=== PATIENT | male | born 1940 | race Caucasian/White ===

== ENCOUNTER 2018-12-14 08:47 | Outpatient (RCR) | payer MEDICARE, BC | END 2018-12-16 09:09 | LOC: OPPGERO 08:47 | DX: F32.1 Major depressive disorder, single episode, moderate (principal); F41.9 Anxiety disorder, unspecified; F43.12 Post-traumatic stress disorder, chronic; I69.311 Memory deficit following cerebral infarction; I34.0 Nonrheumatic mitral (valve) insufficiency; I25.2 Old myocardial infarction; E03.9 Hypothyroidism, unspecified; R06.02 Shortness of breath; F10.20 Alcohol dependence, uncomplicated; Z60.0 Problems of adjustment to life-cycle transitions; Z86.79 Personal history of other diseases of the circulatory system; Z95.1 Presence of aortocoronary bypass graft; Z95.810 Presence of automatic (implantable) cardiac defibrillator; Z79.01 Long term (current) use of anticoagulants; Z79.82 Long term (current) use of aspirin; Z79.51 Long term (current) use of inhaled steroids; Z79.899 Other long term (current) drug therapy ==

== ENCOUNTER 2018-12-16 09:13 | Outpatient (RCR) | payer MEDICARE, BC | END 2019-01-12 13:47 | LOC: OPPGERO 09:13 | DX: F32.1 Major depressive disorder, single episode, moderate (principal); F43.12 Post-traumatic stress disorder, chronic; F41.9 Anxiety disorder, unspecified; I69.310 Attention and concentration deficit following cerebral infarction; I69.311 Memory deficit following cerebral infarction; I25.810 Atherosclerosis of coronary artery bypass graft(s) without angina pectoris; I25.5 Ischemic cardiomyopathy; I34.0 Nonrheumatic mitral (valve) insufficiency; R94.39 Abnormal result of other cardiovascular function study; E03.9 Hypothyroidism, unspecified; Z95.5 Presence of coronary angioplasty implant and graft; Z60.0 Problems of adjustment to life-cycle transitions; Z95.810 Presence of automatic (implantable) cardiac defibrillator; I50.9 Heart failure, unspecified; R06.02 Shortness of breath; Z79.01 Long term (current) use of anticoagulants; Z79.82 Long term (current) use of aspirin; Z79.899 Other long term (current) drug therapy ==

== ENCOUNTER → 2019-01-09 | Outpatient (CLI) | payer MEDICARE, BC ==
[2019-01-09 17:17] LABS: CALCIUM 9.4 mg/dL (8.4-10.2); POTASSIUM 3.2 mmol/L (3.6-5.0)
== END ==
LOC: LAB 11:41
PROVIDERS: Family Medicine
DX: Z86.73 Personal history of transient ischemic attack (TIA), and cerebral infarction without residual deficits (principal); R42 Dizziness and giddiness

== ENCOUNTER → 2019-01-19 | Outpatient (CLI) | payer MEDICARE, BC ==
[2019-01-19 15:27] LABS: POTASSIUM 3.8 mmol/L (3.6-5.0)
== END ==
LOC: LAB 14:24
PROVIDERS: Family Medicine
DX: E87.6 Hypokalemia (principal)

== ENCOUNTER 2019-05-08 10:20 | Outpatient (RCR) | payer MEDICARE, BC | END 2019-05-09 | disposition home or self-care (01) | LOC: CARDREHAB | DX: Z48.812 Encounter for surgical aftercare following surgery on the circulatory system (principal); Z95.5 Presence of coronary angioplasty implant and graft ==

== ENCOUNTER 2019-05-10 10:15 | Outpatient (RCR) | payer MEDICARE, BC | END 2019-05-10 11:00 | disposition home or self-care (01) | LOC: CARDREHAB 10:15 | DX: Z48.812 Encounter for surgical aftercare following surgery on the circulatory system (principal); Z95.5 Presence of coronary angioplasty implant and graft ==

== ENCOUNTER → 2020-06-06 | Outpatient (CLI) | payer MEDICARE, BC, OTHER ==
[2020-06-06 09:44] LABS: POTASSIUM 3.8 mmol/L (3.5-5.1)
[2020-06-06 09:45] LABS: CALCIUM 9.1 mg/dL (8.3-10.5)
== END ==
LOC: LAB 08:59
PROVIDERS: Family Medicine
DX: E87.6 Hypokalemia (principal); R73.9 Hyperglycemia, unspecified

== ENCOUNTER 2023-11-10 03:05 | Emergency (ER) | payer MEDICARE, BC ==
[~2023-11-10] VITALS: Ht 180.3 cm; Wt 97.7 kg
[~2023-11-10 03:05] MED LIST: ATORVASTATIN CA80 MG PO; BRILINTA90 MG PO; CARVEDILOL6.25 MG PO; CEPHALEXIN500 M1 PO; FLOMAX0.4 MG PO; FUROSEMIDE20 MG PO; FUROSEMIDE40 MG; LEVOTHYROXINE100 MC1 PO; POTASSIUM CHLO10 ME8 PO; SYNTHROID RP0.1 MG PO; SYNTHROID112 MCG PO
[2023-11-10 03:37] LABS: BASO # 0.02 K/mm3 (0.02-0.10); HEMATOCRIT 19.9 % (42.0-52.0); LYMPH# 0.92 K/mm3 (1.50-4.00); MEAN CELL VOLUME 95 fl (78-100); MEAN CORPUSCULAR HEMOGLOBIN 31 pg (27-31); MEAN CORPUSCULAR HGB CONC 33 g/dL (33-37); MEAN PLATELET VOLUME 9.4 fl (7.4-10.4); MONO # 0.66 K/mm3 (0.20-0.80); NEU # 7.91 K/mm3 (1.40-6.50); PLATELET COUNT 233 K/mm3 (130-400); RED CELL DISTRIBUTION WIDTH 14.7 % (11.5-14.5); WHITE BLOOD COUNT 9.6 K/mm3 (4.8-10.8)
[2023-11-10 03:42] LABS: ALBUMIN 3.3 g/dL (3.4-4.8)
[2023-11-10 03:44] LABS: CALCIUM 8.6 mg/dL (8.3-10.5); HEMOGLOBIN 6.5 g/dL (13.5-18.0)
[2023-11-10 03:45] LABS: TOTAL PROTEIN 6.2 g/dL (6.2-8.1)
[2023-11-10 03:47] LABS: TOTAL BILIRUBIN 0.5 mg/dL (0.2-1.2)
[2023-11-10 03:53] LABS: URINE WBC 0 /hpf (0-3)
[2023-11-10 03:58] LABS: TROPONIN-I 0.226 ng/mL (<0.030)
[2023-11-10 04:23] LABS: URINE APPEARANCE CLEAR (CLEAR); URINE COLOR YELLOW (YELLOW)
[2023-11-10 04:24] LABS: PH-URINE 5.5 (5.0 - 8.0); URINE BILIRUBIN NEGATIVE (NEGATIVE); URINE BLOOD NEGATIVE (NEGATIVE); URINE GLUCOSE NEGATIVE (NEGATIVE); URINE KETONE NEGATIVE (NEGATIVE); URINE LEUKOCYTE ESTERASE NEGATIVE (NEGATIVE); URINE NITRATE NEGATIVE (NEGATIVE); URINE PROTEIN(semi-quant) NEGATIVE (NEGATIVE)
[2023-11-10 07:20] LABS: PARTIAL THROMBOPLASTIN TIME 19.5 SECONDS (21.0-32.0)
[2023-11-10 07:33] VITALS: BP 104/51
== END 2023-11-10 07:28 | disposition short-term general hospital (02) ==
LOC: ED 03:05
PROVIDERS: Physician Assistant
DX: S80.02XA Contusion of left knee, initial encounter (principal); D62 Acute posthemorrhagic anemia; N17.9 Acute kidney failure, unspecified; R42 Dizziness and giddiness; R79.89 Other specified abnormal findings of blood chemistry; W18.30XA Fall on same level, unspecified, initial encounter; W22.8XXA Striking against or struck by other objects, initial encounter; Y92.009 Unspecified place in unspecified non-institutional (private) residence as the place of occurrence of the external cause
CPT/HCPCS: C9113; J7030; P9016